=== PATIENT | female | born 1990 | race Hispanic/Latino ===

== ENCOUNTER 2019-03-01 20:22 | Emergency (ER) | payer OTHER, SELFPAY ==
[~2019-03-01] VITALS: Ht 157.5 cm; Wt 87.3 kg
[~2019-03-01 20:22] MED LIST: ACET500C PO; IBUP-1022 PO; IBUP80TA PO; MAPA500T2 PO; STUACAP PO
[2019-03-01 21:26] LABS: BASO % 0.2 % (0.0-1.0); EOS # 0.1 10^3/uL (0.0-0.50); EOS % 0.7 % (0.0-3.0); HEMATOCRIT 40.3 % (36.0-47.0); HEMOGLOBIN 13.7 g/dl (12.0-15.5); LYMPH # 2.5 10^3/uL (1.5-6.5); LYMPH % 30.2 % (24.0-44.0); MEAN CORPUSCULAR HEMOGLOBIN 30.6 pg (27.0-33.0); MONO # 0.5 10^3/uL (0.0-0.8); MONO % 5.4 % (0.0-5.0); NEUTROPHILS # 5.3 10^3/uL (1.8-7.7); NEUTROPHILS % 63.4 % (36.0-66.0); PLATELET COUNT, AUTOMATED 310 10^3/uL (150-450); RED BLOOD COUNT 4.48 10^6/uL (4.00-5.40); WHITE BLOOD COUNT 8.4 10^3/uL (4.0-10.0)
[2019-03-01 21:42] LABS: BLOOD UREA NITROGEN 10 MG/DL (7-18); CALCIUM LEVEL 9.2 MG/DL (8.5-10.1); CARBON DIOXIDE LEVEL 31 MEQ/L (21-32); CHLORIDE LEVEL 108 MEQ/L (98-107); CREATININE FOR GFR 0.96 MG/DL (0.55-1.30); GLOMERULAR FILTRATION RATE > 60.0 (>60); GLUCOSE, FASTING 128 MG/DL (70-100); POTASSIUM SERUM 3.6 MEQ/L (3.5-5.1); SODIUM LEVEL 144 MEQ/L (136-145)
[2019-03-01 21:47] LABS: HCG, SERUM QUALITATIVE NEGATIVE (NEGATIVE)
[2019-03-01] MEDS ORDERED: NS 500 ML IV ONE (22:15)
[2019-03-01] MEDS ORDERED: ISOVUE-370 76% 100ML VIAL (Q9967) As Ordered ONE (22:17)
--- NOTE | 2019-03-01 22:56 | REPVR ---
EXAM: CT Head Without Contrast EXAM DATE/TIME: 03/01/2019 10:37 PM CLINICAL HISTORY: 28 years old, female; Pain; Other: Tr TECHNIQUE: Imaging protocol: Computed tomography of the head without contrast. Radiation optimization: All CT scans at this facility use at least one of these dose optimization techniques: automated exposure control; mA and/or kV adjustment per patient size (includes targeted exams where dose is matched to clinical indication); or iterative reconstruction. COMPARISON: No relevant prior studies available. FINDINGS: Brain: No acute intracranial hemorrhage or mass effect. No discrete geographic area of hypoattenuation to suggest territorial infarct identified at this time. Ventricles: No ventriculomegaly. Bones/joints: No acute fracture. Sinuses: No fluid levels. Mastoid air cells: Visualized mastoid air cells are well aerated. Soft tissues: Unremarkable. IMPRESSION: No acute intracranial abnormality. Electronically signed by: Alejandro South On 03/01/2019 22:55:58 PM
--- NOTE | 2019-03-01 23:13 | REPVR ---
EXAM: CT Chest With Contrast EXAM DATE/TIME: 03/01/2019 10:37 PM CLINICAL HISTORY: 28 years old, female; Pain; Other: Tr TECHNIQUE: Imaging protocol: Computed tomography of the chest with intravenous contrast. Radiation optimization: All CT scans at this facility use at least one of these dose optimization techniques: automated exposure control; mA and/or kV adjustment per patient size (includes targeted exams where dose is matched to clinical indication); or iterative reconstruction. Contrast material: ISOVUE 370; Contrast volume: 100 ml; Contrast route: IV COMPARISON: No relevant prior studies available. FINDINGS: No mediastinal hematoma. Thoracic aorta shows no evidence of acute traumatic injury or dissection. No hemothorax or pneumothorax. No evidence of lung contusion, aspiration or concerning lung mass. No enlarged lymph nodes. No central endobronchial lesion. No acute displaced fractures involving ribs, thoracic spine or shoulder girdle. No asymmetric abnormality of the extrathoracic soft tissues. IMPRESSION: No CT evidence of acute thoracic trauma Electronically signed by: Dylan Rodriguez On 03/01/2019 23:12:38 PM
--- NOTE | 2019-03-01 23:16 | REPVR ---
EXAM: CT Abdomen and Pelvis With Contrast EXAM DATE/TIME: 03/01/2019 10:37 PM CLINICAL HISTORY: 28 years old, female; Pain; Other: Tr TECHNIQUE: Imaging protocol: Computed tomography of the abdomen and pelvis with intravenous contrast. Radiation optimization: All CT scans at this facility use at least one of these dose optimization techniques: automated exposure control; mA and/or kV adjustment per patient size (includes targeted exams where dose is matched to clinical indication); or iterative reconstruction. Contrast material: ISOVUE 370; Contrast volume: 100 ml; Contrast route: IV COMPARISON: US OBS FOLLOW UP OR REPEAT 12/17/2015 2:02 PM FINDINGS: ABDOMEN: No intra-abdominal hematoma. Liver, spleen, gallbladder, pancreas, adrenals and kidneys are unremarkable. Main portal and splenic veins enhance normally. Abdominal aorta shows no evidence of acute traumatic injury or dissection. No evidence of hypovolemia. No evidence of bowel obstruction, pneumoperitoneum or free abdominal fluid. No enlarged lymph nodes. PELVIS: No pelvic hematoma. Bladder appears normal. No acute pelvic fracture or malalignment. No acute lumbar spine fracture. No concerning focal abnormality of the extrinsic soft tissues. Bilateral tubal occlusion devices are present. Normal appearing appendix is incidentally noted. No evidence of acute diverticulitis. No abnormal pelvic mass. IMPRESSION: No acute intra-abdominal or pelvic trauma. Electronically signed by: Dylan Rodriguez On 03/01/2019 23:16:07 PM
[2019-03-01 23:49] VITALS: BP 133/88
== END 2019-03-01 23:50 | disposition home or self-care (01) ==
LOC: M ED 20:22
DX: S00.83XA Contusion of other part of head, initial encounter (principal); S00.03XA Contusion of scalp, initial encounter; S30.0XXA Contusion of lower back and pelvis, initial encounter; Y04.0XXA Assault by unarmed brawl or fight, initial encounter; Y92.89 Other specified places as the place of occurrence of the external cause; E66.9 Obesity, unspecified
CPT/HCPCS: 36415; 70450; 71260; 74177; 80048; 84703; 85025; 99284; Q9967

== ENCOUNTER 2020-11-15 14:59 | Emergency (ER) | payer OTHER, SELFPAY ==
[~2020-11-15] VITALS: Ht 154.9 cm; Wt 96.0 kg
[2020-11-15 18:26] VITALS: BP 134/82
== END 2020-11-15 18:26 | disposition home or self-care (01) ==
LOC: M ED 14:59
DX: N92.6 Irregular menstruation, unspecified (principal)

== ENCOUNTER → 2020-12-21 | Outpatient (REF) | payer MEDICAID | LOC: M PLALAB 10:17 | PROVIDERS: ATTEND Advanced Practice Midwife | DX: Z53.9 Procedure and treatment not carried out, unspecified reason (principal); N92.6 Irregular menstruation, unspecified ==

== ENCOUNTER 2021-05-01 04:25 | Emergency (ER) | payer MEDICAID ==
[~2021-05-01] VITALS: Ht 157.5 cm; Wt 100.0 kg
[2021-05-01 04:26] VITALS: BP 132/83
--- OUTSIDE RECORDS SUMMARY | 2021-05-01 04:34 | CCD ---
Author Author [facility] Organization [facility] Address Unknown Phone Unavailable Support Name Relationship Address Phone DANAYCHICamilo Next Of Kin [address] [facility] [address] [place] [address] UE Next Of Kin Unknown Unavailable UNEMPLOYED Next Of Kin UN UN, UN UN STUDENT Next Of Kin Unknown MONTGOMERY, MARIA Next Of Kin [phone] [place] [address] ASPEN MONTGOMERY Next Of Kin [address] [place] [address] SUMMERS, ARGENIS E[address] [place] [address] Unavailable Re-disclosure Warning The records that you are about to access may contain information from federally-assisted alcohol or drug abuse programs. If such information is present, then the following federally mandated warning applies: This information has been disclosed to you from records protected by federal confidentiality rules (42 CFR part 2). The federal rules prohibit you from making any further disclosure of this information unless further disclosure is expressly permitted by the written consent of the person to whom it pertains or as otherwise permitted by 42 CFR part 2. A general authorization for the release of medical or other information is NOT sufficient for this purpose. The Federal rules restrict any use of the information to criminally investigate or prosecute any alcohol or drug abuse patient.The records that you are about to access may contain highly sensitive health information, the redisclosure of which is protected by Article 27-F of the [place] State Public Health law. If you continue you may have access to information: Regarding HIV / AIDS; Provided by facilities licensed or operated by the [facility] Office of Mental Health; or Provided by the [facility] Office for People With Developmental Disabilities. If such information is present, then the following [facility] mandated warning applies: This information has been disclosed to you from confidential records which are protected by state law. State law prohibits you from making any further disclosure of this information without the specific written consent of the person to whom it pertains, or as otherwise permitted by law. Any unauthorized further disclosure in violation of state law may result in a fine or nursing home sentence or both. A general authorization for the release of medical or other information is NOT sufficient authorization for further disc losure. Encounters Encounter Providers Location Date Indications Data Source(s ) [place] [address] [place] [address] 12/21/2020 12:00:00 AM EDT eCW1 ([facility]) Medications No Information Insurance Providers Payer name Policy type / Coverage type Policy ID Covered green party ID Covered green party's relationship to honeycutt Policy Honeycutt Plan Information [facility] Health Maintenance Organization (HMO) [id number] Self [facility] COMMUNITY PLAN [facility] [id number] SP [id number] [facility] COMMUNITY PLAN [facility] [id number] SP [id number] MEDICAID M [id number] S [id number] MEDICAID [id number] SP [id number] [employer] [place] [employer] [id number] SP [id number] [facility] BLUE [id number] SP [id number] [place] [id number] SP [id number] J [id number] MVP MCDO [id number] SP [id number] SELF PAY ONLY [id number] SP [id number] Problems, Conditions, and Diagnoses Code Display Name Description Problem Type Effective Dates Data Source(s) N92.6 Menstrual disorder Irregular menses Problem 12/21/2020 12:00:00 AM EDT eCW1 ([facility]) Z34.80 care Supervision of other normal P roblem 12/20/2020 12:00:00 AM EDT eCW1 ([facility]) Surgeries/Procedures Procedure Description Date Indications Data Source(s) URINE TEST 12/21/2020 12:00:00 AM EDT eCW1 ([facility]) Results No Information Social History No Information Vital Signs ID Date Data Source UNK Name Value Range Interpretation Code Description Data Source(s) Body weight 222.6 [lb_av] 222.6 [lb_av] eCW1 ([facility]) Body weight 100.97 kg 100.97 kg eCW1 ([facility]) Body height 60 [in_i] 60 [in_i] W1 ([facility]) Body mass index (BMI) [Ratio] 43.47 kg/m2 43.47 kg/m2 [facility] ([facility]) Systolic blood pressure 118 mm[Hg] 118 mm[Hg] e CW1 ([facility]) Diastolic blood pressure 76 mm[Hg] 76 mm[Hg] eCW1 ([facility])
--- OUTSIDE RECORDS SUMMARY | 2021-05-01 09:09 | CCD ---
Author Author [facility] Organization [facility] Address Unknown Phone Unavailable Support Name Relationship Address Phone DANAYCHICamilo Next Of Kin [address] [facility] [address] [place] [address] UE Next Of Kin Unknown Unavailable UNEMPLOYED Next Of Kin UN UN, UN UN STUDENT Next Of Kin Unknown MONTGOMERY, MARIA Next Of Kin [address] [address] [place] [address] ASPEN MONTGOMERY Next Of Kin [address] [place] [address] SUMMERS, ARGENIS [address] [place] [address] Unavailable Re-disclosure Warning The records that you [...] is protected by Article 27-F of the [place] State Public Health law. If you continue you may have access to information: Regarding HIV / AIDS; Provided by facilities licensed or operated by the [facility] Office of Mental Health; or Provided by the [facility] Office for People With Developmental Disabilities. If such information is present, then the following [facility] mandated warning applies: This information has [...] law may result in a fine or alf sentence or both. A general authorization for the release of medical or other information is NOT sufficient authorization for further disc losure. Encounters Encounter Providers Location Date Indications Data Source(s ) [place] [address] [facility] [address] 12/21/2020 12:00:00 AM EDT eCW1 ([facility]) Medications No Information Insurance Providers Payer name Policy type / Coverage type Policy ID Covered green party ID Covered green party's relationship to honeycutt Policy Honeycutt Plan Information [facility] Health Maintenance Organization (HMO) [id number] Self [facility] COMMUNITY PLAN [facility] [id number] SP [id number] [facility] COMMUNITY PLAN [facility] [id number] SP [id number] MEDICAID M [id number] S [id number] MEDICAID [id number] SP [id number] [employer]UE [place] [employer] [id number] SP [id number] [facility] BLUE [id number] SP [id number] [place] [id number] SP [id number] J [id number] MVP MCDO [id number] SP [id number] SELF PAY ONLY [id number] SP [id number] Problems, Conditions, and Diagnoses Code Display Name Description Problem Type Effective Dates Data Source(s) N92.6 Menstrual disorder Irregular menses Problem 12/21/2020 12:00:00 AM EDT eCW1 ([facility]) Z34.80 care Supervision of other normal P roblem 12/20/2020 12:00:00 AM EDT eCW1 ([facility]) Surgeries/Procedures Procedure Description Date Indications Data Source(s) URINE TEST 12/21/2020 12:00:00 AM EDT eCW1 ([facility]) Results No Information Social History No Information Vital Signs ID Date Data Source UNK Name Value Range Interpretation Code Description Data Source(s) Body weight 222.6 [lb_av] 222.6 [lb_av] eCW1 ([facility]) Body weight 100.97 kg 100.97 kg eCW1 ([facility]) Body height 60 [in_i] 60 [in_i] W1 ([facility]) Body mass index (BMI) [Ratio] 43.47 kg/m2 43.47 kg/m2 [facility] ([facility]) Systolic blood pressure 118 mm[Hg] 118 mm[Hg] e CW1 ([facility]) Diastolic blood pressure 76 mm[Hg] 76 mm[Hg] eCW1 ([facility])
[2021-05-01] MEDS ORDERED: HYDR-3713 PO (23:47)
== END 2021-05-01 09:18 | disposition left against medical advice (07) ==
LOC: M ED 04:25
DX: Z53.21 Procedure and treatment not carried out due to patient leaving prior to being seen by health care provider (principal)

== ENCOUNTER 2021-05-01 16:07 | Emergency (ER) | payer MEDICAID, OTHER ==
[~2021-05-01] VITALS: Ht 157.5 cm; Wt 100.0 kg
--- NOTE | 2021-05-01 17:07 | REP ---
INDICATION: TRAUMA. COMPARISON: None. TECHNIQUE: Four views FINDINGS: There is an oblique distal fibular fracture. There is abnormal medial widening of the mortise. There is diffuse soft tissue swelling. IMPRESSION: Fracture subluxation as described above. <Electronically signed by Abdullahi Schmidt > 05/01/21 [id number]
--- OUTSIDE RECORDS SUMMARY | 2021-05-01 17:39 | CCD ---
Author Author [facility] Organization [facility] Address Unknown Phone Unavailable Support Name Relationship Address Phone KACY Next Of Kin [address] [facility] [address] [place] [address] UE Next Of Kin Unknown Unavailable UNEMPLOYED Next Of Kin UN UN, UN UN STUDENT Next Of Kin Unknown ARGENIS MONTGOMERY Next Of Kin [phone] [place] [address] ASPEN MONTGOMERY Next Of Kin [address] [place] [address] MONTGOMERYASPEN HARRY [address] [address] [place] [address] Unavailable ARGENIS SUMMERS [address] [place] [address] Unavailable Re-disclosure Warning The records that you [...] is protected by Article 27-F of the [facility] Public Health law. If you continue you may have access to information: Regarding HIV / AIDS; Provided by facilities licensed or operated by the [facility] Office of Mental Health; or Provided by the [facility] Office for People With Developmental Disabilities. If such information is present, then the following [facility] mandated warning applies: This information has [...] law may result in a fine or long term sentence or both. A general authorization for the release of medical or other information is NOT sufficient authorization for further disc losure. Encounters Encounter Providers Location Date Indications Data Source(s ) Outpatient [address] [facility] [address] 12/21/2020 12:00:00 AM EDT eCW1 ([facility]) Medications No Information Insurance Providers Payer name Policy type / Coverage type Policy ID Covered republican ID Covered republican's relationship to honeycutt Policy Honeycutt Plan Information [facility] Health Maintenance Organization (HMO) [id number] Self [facility] COMMUNITY PLAN [facility] [id number] SP [id number] [facility] COMMUNITY PLAN [facility] [id number] SP [id number] MEDICAID M [id number] S [id number] MEDICAID [id number] SP [id number] [employer]UE [place] PLAN [id number] SP [id number] [facility] [id number] SP [id number] [place] MEDICA[place] [id number] SP [id number] J [id number] P MCDO [id number] SP [id number] SELF PAY ONLY [id number] SP [id number] Problems, Conditions, and Diagnoses Code Display Name Description Problem Type Effective Dates Data Source(s) N92.6 Menstrual disorder Irregular menses Problem 12/21/2020 12:00:00 AM EDT eCW1 ([facility]) Z34.80 care Supervision of other normal P roblem 12/20/2020 12:00:00 AM EDT eCW1 ([facility]) Surgeries/Procedures Procedure Description Date Indications Data Source(s) URINE TEST 12/21/2020 12:00:00 AM EDT eCW1 ([facility]) Results No Information Social History No Information Vital Signs ID Date Data Source UNK Name Value Range Interpretation Code Description Data Source(s) Body weight 222.6 [lb_av] 222.6 [lb_av] eCW1 ([facility]) Body weight 100.97 kg 100.97 kg eCW1 ([facility]) Body height 60 [in_i] 60 [in_i] eCW1 ([facility]) Body mass index (BMI) [Ratio] 43.47 kg/m2 43.47 kg/m2 W1 ([facility]) Systolic blood pressure 118 mm[Hg] 118 mm[Hg] e CW1 ([facility]) Diastolic blood pressure 76 mm[Hg] 76 mm[Hg] eCW1 ([facility])
--- NOTE | 2021-05-01 17:40 | REP ---
INDICATION: trauma. COMPARISON: None. TECHNIQUE: AP and lateral views FINDINGS: There is a distal fibular fracture. There are no additional fractures. IMPRESSION: Distal fibular fracture. No additional fractures. See the ankle report. <Electronically signed by Abdullahi Schmidt > 05/01/21 [id number]
--- NOTE | 2021-05-01 17:43 | REP ---
INDICATION: ankle gravity stress. COMPARISON: Earlier today TECHNIQUE: Single view FINDINGS: Once again, note is made of an oblique distal fibular fracture. Once again, there is abnormal widening of the mortise medially. This is increased compared to the non stressed images. IMPRESSION: As above <Electronically signed by Abdullahi Schmidt > 05/01/21 [id number]
[2021-05-01] MEDS ORDERED: MORPHINE 2 MG/ML 1ML VIAL (J2270) IV ONE ×2 (17:45→20:40)
[2021-05-01] MEDS ORDERED: ONDANSETRON 4MG/2ML VIAL IV ONE (17:45)
[2021-05-01 18:51] LABS: BASO % 0.2 % (0.0-1.0); EOS % 0.2 % (0.0-3.0); HEMATOCRIT 38.1 % (36.0-47.0); HEMOGLOBIN 13.1 g/dl (12.0-15.5); LYMPH # 3.1 10^3/uL (1.5-5.0); LYMPH % 24.9 % (24.0-44.0); MEAN CORPUSCULAR HEMOGLOBIN 30.3 pg (27.0-33.0); MEAN CORPUSCULAR HGB CONC 34.4 g/dl (32.0-36.5); MONO # 0.7 10^3/uL (0.0-0.8); MONO % 5.7 % (2.0-8.0); NEUTROPHILS # 8.4 10^3/uL (1.5-8.5); NEUTROPHILS % 68.7 % (36.0-66.0); PLATELET COUNT, AUTOMATED 323 10^3/uL (150-450); RED BLOOD COUNT 4.33 10^6/uL (4.00-5.40); WHITE BLOOD COUNT 12.3 10^3/uL (4.0-10.0)
[2021-05-01 19:18] LABS: BLOOD UREA NITROGEN 11 MG/DL (7-18); CALCIUM LEVEL 9.1 MG/DL (8.5-10.1); CARBON DIOXIDE LEVEL 25 MEQ/L (21-32); CHLORIDE LEVEL 107 MEQ/L (98-107); CREATININE FOR GFR 0.76 MG/DL (0.55-1.30); GLOMERULAR FILTRATION RATE > 60.0 (>60); GLUCOSE, FASTING 102 MG/DL (70-100); POTASSIUM SERUM 4.1 MEQ/L (3.5-5.1); SODIUM LEVEL 137 MEQ/L (136-145)
[2021-05-01] MEDS ORDERED: NS 1,000 ML IV SCH (19:25)
[2021-05-01] MEDS ORDERED: HOME MED LIST COMPLETE! XX SCH (20:45)
[2021-05-01] MEDS ORDERED: HYDR-3713 PO (23:47)
[2021-05-01] MEDS ORDERED: NORCO 5/325MG TABLET (BULK FOR ED) PO ONE (23:50)
[2021-05-02] VITALS: BP 133/64
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
--- NOTE | 2021-05-02 08:51 | REP ---
INDICATION: fracture. COMPARISON: Preprocedural exam same day at 5:09 p.m. TECHNIQUE: Three fluoroscopic spot views obtained during close reduction. 21.9 seconds of fluoroscopy time was provided. FINDINGS: Previously described distal fibular fracture is again noted and essentially unchanged. Previously described tibiotalar subluxation has been reduced. There does appear to be mild persistent medial widening of the mortise. IMPRESSION: Reduction as described above. Follow-up is suggested. <Electronically signed by Abdullahi Schmidt > 05/02/21 [id number]
--- NOTE | 2021-05-02 09:20 | REP ---
INDICATION: known fracture, preop. COMPARISON: Radiographs 05/01/2021. TECHNIQUE: Axial CT left ankle with sagittal and coronal reconstruction images. FINDINGS: There is an oblique fracture of the distal fibula with lateral displacement. There is a fracture of the posterior malleolus. There is widening of the medial mortise. Punctate calcification between the medial malleolus and talus likely represents an avulsion fracture. There is widening of the medial mortise. There is no osteochondral defect of the talar dome. There is associated soft tissue edema. IMPRESSION: Oblique fracture distal fibula with lateral displacement. Posterior malleolar fracture. Avulsion fracture medial malleolus, with widening of the medial mortise. This suggests deltoid ligament injury. A preliminary report was provided by [facility] at the time of the exam. <Electronically signed by Emmanuel Rangel > 05/02/21 [id number]
== END 2021-05-02 00:10 | disposition home or self-care (01) ==
LOC: M ED 16:07
DX: S82.435A Nondisplaced oblique fracture of shaft of left fibula, initial encounter for closed fracture (principal); S82.55XA Nondisplaced fracture of medial malleolus of left tibia, initial encounter for closed fracture; S93.02XA Subluxation of left ankle joint, initial encounter; X50.0XXA Overexertion from strenuous movement or load, initial encounter; Y92.9 Unspecified place or not applicable; Y93.9 Activity, unspecified; Y99.9 Unspecified external cause status
CPT/HCPCS: 27840; 36415; 73590; 73600; 73610; 73700; 80048; 85025; 96374; 96375; 99285; J2270; J2405

== ENCOUNTER → 2021-05-04 | Outpatient (CLI) | payer OTHER ==
[~2021-05-04] MED LIST changes: +HYDR-3713 PO
== END ==
LOC: M LABSMTC 10:19
PROVIDERS: ATTEND Anesthesiology
DX: Z01.818 Encounter for other preprocedural examination (principal); Z11.52 Encounter for screening for COVID-19

== ENCOUNTER 2021-05-06 13:25 | Day surgery (SDC) | payer OTHER ==
[~2021-05-06] VITALS: Ht 162.6 cm; Wt 110.1 kg
[~2021-05-06 13:25] MED LIST changes: +LIDOCAINE 1% MDV 20ML VIAL SQ PRN; +LR 1,000 ML IV ONE; +fentaNYL 100 MCG/2 ML INJECTION (J3010) IV PRN
[2021-05-06] MEDS ORDERED: SUGAMMADEX SODIUM 500 MG/5 ML VIAL (BRIDION) As Ordered ONE (14:49)
[2021-05-06] MEDS ORDERED: dexameTHASONE 4 MG/ML 1ML VIAL (J1100 PER 1MG) As Ordered ONE (14:49)
[2021-05-06] MEDS ORDERED: ROCURONIUM BROMIDE 50 MG/5 ML VIAL As Ordered ONE ×2 (14:49→18:18)
[2021-05-06] MEDS ORDERED: propofoL 200 MG/20 ML VIAL As Ordered ONE (14:49)
[2021-05-06] MEDS ORDERED: ACETAMINOPHEN 1000MG 100ML IV BTL (OFIRMEV) (J0131 PER 10MG) As Ordered ONE (14:49)
[2021-05-06] MEDS ORDERED: MIDAZOLAM INJ 2MG/2ML VIAL (J2250 PER 1MG) As Ordered ONE (14:49)
[2021-05-06] MEDS ORDERED: LIDOCAINE 2% 100MG/5ML SDV (FOR ANES.) As Ordered ONE (14:49)
[2021-05-06] MEDS ORDERED: KETOROLAC 60MG 2ML VIAL As Ordered ONE (14:49)
[2021-05-06] MEDS ORDERED: fentaNYL 100 MCG/2 ML INJECTION (J3010) As Ordered ONE ×2 (14:49→18:47)
[2021-05-06] MEDS ORDERED: ONDANSETRON 4MG/2ML VIAL As Ordered ONE (14:49)
[2021-05-06] MEDS ORDERED: EPINEPHrine INJ 1 MG/ML 1ML AMP XX ONE (14:55)
[2021-05-06] MEDS ORDERED: LIDOCAINE 1% MDV 20ML VIAL XX ONE (14:55)
[2021-05-06] MEDS ORDERED: dexameTHASONE 10MG/1ML VIAL PRES.FREE (J1100 PER 1MG) XX ONE (14:55)
[2021-05-06] MEDS ORDERED: ROPIvacaine 0.5% 30ML INJECTION (J2795 PER 1MG) XX ONE (14:55)
[2021-05-06] MEDS ORDERED: MIDAZOLAM INJ 2MG/2ML VIAL (J2250 PER 1MG) IV PRN (15:00)
[2021-05-06] MEDS ORDERED: TRANEXAMIC ACID 100 MG/ML 10ML VIAL As Ordered ONE ×2 (17:33→17:57)
[2021-05-06] MEDS ORDERED: ceFAZolin 2 GM/D5W 50 ML IV BAG (J0690 PER 500MG) As Ordered ONE (17:56)
[2021-05-06] MEDS ORDERED: VANCOMYCIN 1000MG/20ML VIAL As Ordered ONE (17:58)
[2021-05-06] MEDS ORDERED: ESMOLOL INJ 100MG/10ML VIAL As Ordered ONE (19:27)
[2021-05-06] MEDS ORDERED: LR 1,000 ML IV SCH (21:10)
[2021-05-06] MEDS ORDERED: ONDANSETRON 4MG/2ML VIAL IV PRN (21:10)
[2021-05-06] MEDS ORDERED: fentaNYL 100 MCG/2 ML INJECTION (J3010) IV PRN (21:10)
[2021-05-06] MEDS ORDERED: oxyCODONE 5MG TAB PO PRN (21:10)
[2021-05-06] MEDS: HYDROMORPHONE HCL 0.5 MG/ 0.5 ML SYRINGE (J1170 PER 1) IV PRN ×4 (21:24→21:41)
--- NOTE | 2021-05-06 21:32 | REPVR ---
PROCEDURE INFORMATION: Exam: FL Fluoroscopy, Up to 1 Hour Physician Time; Radiologist Not Present For Fluoroscopy Exam date and time: 05/06/2021 8:25 PM Age: 30 years old Clinical indication: Condition or disease; Condition/disease: Left ankle fracture TECHNIQUE: Imaging protocol: Fluoroscopy , up to 1 hour physician or other qualified health progressive care unit registered nurse time. This radiologist did not supervise this procedure. Exam supervised by facility personnel. Report for radiation dosage reporting and documentation only. COMPARISON: No relevant prior studies available. RADIATION DOSE METRICS: Fluoroscopy time (seconds): 128.1 seconds Number of fluoro spot images: 9 Reference air kerma (SHAUNA): 4.63 mGy FINDINGS: Procedural imagin fluoroscopic images obtained during open reduction and internal fixation of a distal fibular fracture are submitted for review. The images document alignment of the fibular fracture ends and the application stabilization hardware. Incidental note made of a fracture of the posterior malleolus as well Notes: Fluoroscopy supervised by facility personnel. See also separate procedure report. IMPRESSION: Fluoroscopy dosage documentation. See also separate procedure notes. Electronically signed by: Katerin John On 05/06/2021 21:32:07 PM
[2021-05-06 22:00] VITALS: BP 120/57
--- NOTE | 2021-05-07 07:40 | RO ---
OPERATIVE NOTE DATE OF OPERATION: 05/06/2021 TIME: 6:30 p.m. PREOPERATIVE DIAGNOSIS: Distal fibula and syndesmotic destruction. POSTOPERATIVE DIAGNOSIS: Distal fibula and syndesmotic destruction. NAME OF OPERATION: 1. Left ankle open reduction and internal fixation. 2. Syndesmotic fixation. SURGEON: Dwayne Smiley MD FREIGHT ENGINEER: None. SUPERVISING ATTENDING: Dwayne Smiley MD FINDINGS: The patient had an unstable ankle fracture involving the distal fibula as well as a disrupted syndesmosis. INDICATIONS: This is a 22-year-old female who sustained a ground-level fall during a [employer] party on April,. The patient presented to the [facility] on the April,, however, left against medical advice. She presented again on the April, for left ankle pain and inability to bear weight. Orthopedics was consulted and she was diagnosed with an unstable left ankle fracture involving the distal fibula as well as the syndesmosis. She is indicated for the aforementioned surgery in order to stabilize the fracture to allow weightbearing. ANESTHESIA: GETA. TOURNIQUET TIME: 120 minutes. ESTIMATED BLOOD LOSS: 30 mL. IV FLUIDS: Please see anesthesia report. IV ANTIBIOTICS: Please see anesthesia report. IMPLANTS: Synthes. CULTURES: None. SPECIMENS: None. DESCRIPTION OF PROCEDURE: The patient was met in the preoperative holding area where the patient's operative extremity was signed, the patient's consent was confirmed to be correct, and the patient's identity was confirmed to be correct. She was then transferred to the operating theater where she was placed in supine position on a regular surgical flat-top bed with a radiolucent extension. Bone foam was placed on the patient's leg. A safety strap secured the patient to the bed. All bony prominences were well padded. The contralateral lower extremity had an SCD placed. A timeout was called to confirm the correct patient, correct operative extremity and correct consent. All staff were in agreement. The patient was then draped in the usual sterile fashion. We began the procedure by obtaining fluoroscopic imaging to ensure location of the fibular fracture, then made a longitudinal incision approximately 5 inches in length overlying the distal fibular fracture. I incised the skin sharply using a scalpel, then used meticulous hemostasis to go into the periosteum of the fibula. I elevated the periosteum using a 15 blade scalpel and identified the fracture. I then cleaned the fracture using a 15 blade scalpel and a hemostat as well as copious irrigation. Then I performed an anatomic reduction using cortical read. This was provisionally held with [id number] bone-reducing clamps. Then I placed a 2.7 mm lag screw by technique through the fracture. We then placed the plate into position and confirmed fluoroscopy. We were satisfied with fracture reduction as well as implant placement. I secured the plate to bone using a distal cortical screw and a proximal 2.5 mm cortical screw, once again taking fluoroscopy to assure we were satisfied with fracture reduction as well as implant placement. We then placed three additional locking screws distally and placed the distal cortical screw with a locking screw. I then placed two additional cortical screws in the proximal aspect of the plate, once again confirmed fluoroscopy. We were satisfied with the mortise view and ensured that there were no penetrating screws within the tibiotalar joint. I was satisfied with the fracture reduction as well as implant placement. I then placed a thin guidewire at the level of the syndesmosis through the plate and ensured on fluoroscopy that it was centered appropriately in the lateral view along the distal tibia, it was. I then overdrilled and placed and a syndesmotic TightRope and a fixation device in order to reapproximate the distal fibula within the appropriate position relative to the tibia and restored stability within the syndesmosis. I repeated this with a second TightRope suspensory fixation device and approximately 1 cm proximal to this through the holes in the distal fibular locking plate. At this point in the time, I took a mortise fluoroscopic view and then stressed the joint to ensure that the tails were not lateralized with dorsiflexion and external rotation, it did not. I took an AP view and a lateral view of the ankle as well as a more proximal view to ensure that our plate was positioned appropriately and our fracture reduction was satisfactory, it was. Our fracture was anatomic and it restored the length of the fibula. I then copiously irrigated the surgical site with three liters of normal saline. I put 1 gm of vancomycin directly on the plate. I closed the deep periosteum over the plate using 0 Vicryl, closed the dermal layer using 2-0 Vicryl, closed the skin using a 3-0 running nylon suture, placed Xeroform over the surgical incision followed by a 4x4, ABD pads and Sukhjinder bandage. The patient was then extubated without complication and transferred to the postanesthesia care unit. At this point in time, the patient will be range of motion as tolerated to the left ankle. She will be nonweightbearing for six weeks following the ankle open reduction and internal fixation rehabilitative protocol. She will follow up in our clinic on May 10, 2021 for a wound check as well as physical therapy instructions. She will be given her pain medications at her local pharmacy. She will be notified of the aforementioned findings in the postanesthesia care unit.
== END 2021-05-06 22:46 | disposition home or self-care (01) ==
LOC: M SDC 13:25
PROVIDERS: ATTEND Orthopaedic Surgery
DX: S82.62XA Displaced fracture of lateral malleolus of left fibula, initial encounter for closed fracture (principal); W19.XXXA Unspecified fall, initial encounter; Y92.89 Other specified places as the place of occurrence of the external cause; Y93.9 Activity, unspecified; Y99.9 Unspecified external cause status; Z91.81 History of falling
CPT/HCPCS: 27792; 27829; 64445; 76000; C1713; J0131; J0690; J1100; J1170; J1885; J2250; J2405; J3010; J3370

== ENCOUNTER → 2021-05-19 | Outpatient (CLI) | payer OTHER ==
[~2021-05-19] MED LIST changes: -LIDOCAINE 1% MDV 20ML VIAL SQ PRN; -LR 1,000 ML IV ONE; -fentaNYL 100 MCG/2 ML INJECTION (J3010) IV PRN
--- NOTE | 2021-05-19 11:58 | REP ---
INDICATION: LT ANKLE FX. COMPARISON: 05/01/2021 TECHNIQUE: AP, lateral, oblique views of the left ankle FINDINGS: Patient is noted to be status post satisfactory open reduction and fixation. No acute fracture or dislocation is appreciated. Generalized soft tissue swelling at the ankle noted. Ankle mortise appears normal. IMPRESSION: Satisfactory open reduction and fixation for distal fibular fracture <Electronically signed by Rocky Ridley > 05/19/21 [id number]
== END ==
LOC: M SOG 08:42
PROVIDERS: ATTEND Student in an Organized Health Care Education/Training Program
DX: S82.62XA Displaced fracture of lateral malleolus of left fibula, initial encounter for closed fracture (principal); X58.XXXA Exposure to other specified factors, initial encounter; Y92.9 Unspecified place or not applicable; Y93.9 Activity, unspecified; Y99.9 Unspecified external cause status

== ENCOUNTER 2021-09-04 02:33 | Emergency (ER) | payer OTHER ==
[~2021-09-04] VITALS: Ht 162.6 cm; Wt 104.5 kg
[2021-09-04 03:20] LABS: BASO % 0.2 % (0.0-1.0); EOS # 0.1 10^3/uL (0.0-0.5); EOS % 0.9 % (0.0-3.0); HEMOGLOBIN 13.8 g/dl (12.0-15.5); LYMPH # 3.6 10^3/uL (1.5-5.0); LYMPH % 38.1 % (24.0-44.0); MEAN CORPUSCULAR HEMOGLOBIN 29.2 pg (27.0-33.0); MEAN CORPUSCULAR HGB CONC 33.7 g/dl (32.0-36.5); MEAN CORPUSCULAR VOLUME 86.7 fl (80.0-96.0); MONO # 0.5 10^3/uL (0.0-0.8); MONO % 4.9 % (2.0-8.0); NEUTROPHILS # 5.3 10^3/uL (1.5-8.5); NEUTROPHILS % 55.7 % (36.0-66.0); PLATELET COUNT, AUTOMATED 387 10^3/uL (150-450); RED BLOOD COUNT 4.73 10^6/uL (4.00-5.40); WHITE BLOOD COUNT 9.5 10^3/uL (4.0-10.0)
[2021-09-04 03:35] LABS: AMPHETAMINES LEVEL URINE NEGATIVE (NEGATIVE); BARBITURATES URINE NEGATIVE (NEGATIVE); BENZODIAZEPINES URINE NEGATIVE (NEGATIVE); CANNABINOIDS URINE NEGATIVE (NEGATIVE); COCAINE METABOLITE URINE NEGATIVE (NEGATIVE); METHADONE URINE NEGATIVE (NEGATIVE); OPIATES URINE NEGATIVE (NEGATIVE); PHENCYCLIDINE URINE NEGATIVE (NEGATIVE)
[2021-09-04 03:52] LABS: HCG, SERUM QUALITATIVE NEGATIVE (NEGATIVE)
[2021-09-04 04:00] LABS: RSV AMPLIFICATION NEGATIVE (NEGATIVE)
[2021-09-04 04:04] LABS: ACETAMINOPHEN LEVEL < 2.0 UG/ML (10.0-30.0); ALBUMIN 3.7 GM/DL (3.2-5.2); ALT/SGPT 54 U/L (12-78); BILIRUBIN,DIRECT < 0.1 MG/DL (0.0-0.2); BILIRUBIN,TOTAL 0.2 MG/DL (0.2-1.0); BLOOD UREA NITROGEN 11 MG/DL (7-18); CALCIUM LEVEL 9.1 MG/DL (8.5-10.1); CARBON DIOXIDE LEVEL 24 MEQ/L (21-32); CHLORIDE LEVEL 107 MEQ/L (98-107); CREATININE FOR GFR 0.73 MG/DL (0.55-1.30); ETHYL ALCOHOL (ETHANOL) 0.265 % (0.000-0.010); GLOMERULAR FILTRATION RATE > 60.0 (>60); GLUCOSE, FASTING 134 MG/DL (70-100); POTASSIUM SERUM 3.7 MEQ/L (3.5-5.1); SALICYLATE LEVEL < 1.7 MG/DL (5.0-30.0); SODIUM LEVEL 143 MEQ/L (136-145); THYROID STIMULATING HORMONE 0.693 uIU/ML (0.358-3.740); TOTAL PROTEIN 8.3 GM/DL (6.4-8.2)
[2021-09-04 05:30] VITALS: BP 120/68
[2021-09-04] MEDS ORDERED: BOOSTRIX/ADACEL VACCINE (DIPHTH/PERTUSS/ACELL/TETANUS) 0.5ML SYR IM ONE (05:40)
== END 2021-09-04 06:28 | disposition home or self-care (01) ==
LOC: M ED 02:33
DX: F10.129 Alcohol abuse with intoxication, unspecified (principal); S61.411A Laceration without foreign body of right hand, initial encounter; S00.03XA Contusion of scalp, initial encounter; Y92.9 Unspecified place or not applicable; Y93.9 Activity, unspecified; Y99.9 Unspecified external cause status

== ENCOUNTER → 2022-12-26 | Outpatient (REF) | LOC: M EMP 10:38 | PROVIDERS: ATTEND Family Medicine | DX: Z11.52 Encounter for screening for COVID-19 (principal) ==

== ENCOUNTER → 2023-03-06 | Outpatient (REF) | LOC: M EMP 07:56 | PROVIDERS: ATTEND Family Medicine | DX: Z11.52 Encounter for screening for COVID-19 (principal) ==

== ENCOUNTER 2023-03-13 11:27 | Emergency (ER) | payer MEDICAID, OTHER ==
[~2023-03-13] VITALS: Ht 160 cm; Wt 115.8 kg
[2023-03-13 12:57] LABS: BASO % 0.2 % (0.0-1.0); EOS # 0.1 10^3/uL (0.0-0.5); EOS % 1.4 % (0.0-3.0); HEMOGLOBIN 13.2 g/dl (12.0-15.5); LYMPH % 22.2 % (24.0-44.0); MEAN CORPUSCULAR HEMOGLOBIN 29.1 pg (27.0-33.0); MEAN CORPUSCULAR VOLUME 88.3 fl (80.0-96.0); MONO # 0.7 10^3/uL (0.0-0.8); MONO % 7.9 % (2.0-8.0); NEUTROPHILS # 6.2 10^3/uL (1.5-8.5); PLATELET COUNT, AUTOMATED 316 10^3/uL (150-450); RED BLOOD COUNT 4.53 10^6/uL (4.00-5.40); WHITE BLOOD COUNT 9.2 10^3/uL (4.0-10.0)
[2023-03-13] MEDS ORDERED: AMPICILLIN SOD/SULBACTAM SOD 3 GM in D5W MINI-BAG PLUS 100 ML IV ONE (13:30)
[2023-03-13] MEDS ORDERED: KETOROLAC 30 MG/ML 1ML VIAL IV ONE (13:30)
[2023-03-13] MEDS ORDERED: dexAMETHasone 20MG/5ML VIAL IV ONE (13:30)
[2023-03-13] MEDS ORDERED: NS 1,000 ML IV ONE (13:30)
[2023-03-13] MEDS ORDERED: ISOVUE-370 76% 100ML VIAL As Ordered ONE (13:36)
[2023-03-13 13:49] LABS: ERYTHROCYTE SEDIMENTATION RATE 45 mm/hr (0-20)
[2023-03-13] MEDS ORDERED: AMOX875T2 PO (14:53)
[2023-03-13 15:11] VITALS: BP 144/98; TEMP 97.5; O2SAT 100
== END 2023-03-13 15:10 | disposition home or self-care (01) ==
LOC: M ED 11:27
DX: K02.9 Dental caries, unspecified (principal); L03.211 Cellulitis of face; K01.1 Impacted teeth; Z79.1 Long term (current) use of non-steroidal anti-inflammatories (NSAID)
CPT/HCPCS: 36415; 70491; 80047; 84132; 84702; 85025; 85652; 86140; 96365; 96375; 99284; J0295; J1100; J1885; Q9967

== ENCOUNTER 2024-06-04 11:54 | Emergency (ER) | payer OTHER ==
[~2024-06-04] VITALS: Ht 160 cm; Wt 121.4 kg
[~2024-06-04 11:54] MED LIST changes: +AMOX875T2 PO
[2024-06-04 13:25] VITALS: BP 149/95; TEMP 98; O2SAT 97
== END 2024-06-04 13:32 | disposition home or self-care (01) ==
LOC: M ED 11:54
DX: S69.91XA Unspecified injury of right wrist, hand and finger(s), initial encounter (principal); W01.0XXA Fall on same level from slipping, tripping and stumbling without subsequent striking against object, initial encounter; Y92.9 Unspecified place or not applicable; Y93.89 Activity, other specified; Y99.0 Civilian activity done for income or pay

== ENCOUNTER → 2024-06-11 | Outpatient (CLI) | payer OTHER | LOC: M OUTALCOH 14:11 | PROVIDERS: ATTEND Psychiatry & Neurology Psychiatry | DX: F10.10 Alcohol abuse, uncomplicated (principal) ==

== ENCOUNTER → 2024-06-18 | Outpatient (CLI) | payer OTHER | LOC: M RAD 14:16 | PROVIDERS: ATTEND Physician Assistant | DX: S63.91XA Sprain of unspecified part of right wrist and hand, initial encounter (principal); X58.XXXA Exposure to other specified factors, initial encounter; Y92.9 Unspecified place or not applicable ==

== ENCOUNTER 2024-06-23 15:39 | Outpatient (RCR) | payer OTHER | END 2024-07-01 | LOC: M OUTALCOH 15:39 | PROVIDERS: ATTEND Psychiatry & Neurology Psychiatry | DX: F10.10 Alcohol abuse, uncomplicated (principal) ==